=== PATIENT | female | born 1985 | race Caucasian/White ===

== ENCOUNTER → 2016-10-12 | Outpatient (REF) | payer OTHER | LOC: M SFHCPLAZ 11:46 | PROVIDERS: ATTEND Internal Medicine | DX: Z00.00 Encounter for general adult medical examination without abnormal findings (principal); E28.2 Polycystic ovarian syndrome ==

== ENCOUNTER → 2016-10-12 | Outpatient (CLI) | payer OTHER ==
[2016-10-12 16:47] LABS: MEAN CORPUSCULAR HEMOGLOBIN 29.1 pg (27.0-33.0); MEAN CORPUSCULAR HGB CONC 32.8 g/dl (32.0-36.5); MEAN CORPUSCULAR VOLUME 88.9 fl (80.0-96.0); RED CELL DISTRIBUTION WIDTH 12.7 % (11.5-14.5); WHITE BLOOD COUNT 8.7 K/mm3 (4.0-10.0)
[2016-10-12 17:08] LABS: ALKALINE PHOSPHATASE 72 U/L (45-117); ALT/SGPT 13 U/L (12-78); ANION GAP 10 MEQ/L (8-16); AST/SGOT 23 U/L (15-37); BILIRUBIN,TOTAL 0.4 MG/DL (0.2-1.0); BLOOD UREA NITROGEN 10 MG/DL (7-18); CALCIUM LEVEL 9.5 MG/DL (8.5-10.1); CARBON DIOXIDE LEVEL 27 MEQ/L (21-32); CHLORIDE LEVEL 103 MEQ/L (98-107); GLOMERULAR FILTRATION RATE > 60.0 (>60); GLUCOSE, FASTING 83 MG/DL (70-105); POTASSIUM SERUM 4.1 MEQ/L (3.5-5.1); SODIUM LEVEL 140 MEQ/L (136-145); TRIGLYCERIDES LEVEL 133 MG/DL (<150)
[2016-10-12 17:09] LABS: ALBUMIN 3.8 GM/DL (3.2-5.2); ALBUMIN/GLOBULIN RATIO 1.09 (1.00-1.93); CHOLESTEROL LEVEL 222 MG/DL (<200); TOTAL PROTEIN 7.3 GM/DL (6.4-8.2)
== END ==
LOC: M WUC 14:17
PROVIDERS: ATTEND Internal Medicine
DX: Z00.00 Encounter for general adult medical examination without abnormal findings (principal); E28.2 Polycystic ovarian syndrome

== ENCOUNTER → 2017-07-06 | Outpatient (REF) | payer OTHER ==
[2017-07-06 18:37] LABS: APPEARANCE, URINE CLEAR (CLEAR); BACTERIA, URINE AUTO NEGATIVE (NEGATIVE); BILIRUBIN, URINE AUTO NEGATIVE (NEGATIVE); BLOOD, URINE BLOOD NEGATIVE (NEGATIVE); COLOR, URINE YELLOW (YELLOW); GLUCOSE, URINE (UA) AUTO NEGATIVE (NEGATIVE); KETONE, URINE AUTO NEGATIVE (NEGATIVE); LEUKOCYTE ESTERASE, URINE AUTO NEGATIVE (NEGATIVE); MUCUS, URINE SMALL (NEGATIVE); NITRITE, URINE AUTO NEGATIVE (NEGATIVE); PROTEIN, URINE AUTO NEGATIVE (NEGATIVE); RBC, URINE AUTO 2 /HPF (0-3); SPECIFIC GRAVITY URINE AUTO 1.027 (1.002-1.035); SQUAMOUS EPITHELIAL CELL UR AU 2 /HPF (0-6); UROBILINOGEN, URINE AUTO 0.2 mg/dL (0.0-2.0); WBC, URINE AUTO 2 /HPF (0-3)
== END ==
LOC: M LAB REF 17:19
DX: N39.0 Urinary tract infection, site not specified (principal)

== ENCOUNTER → 2017-07-06 | Outpatient (CLI) | payer OTHER ==
[2017-07-06 18:07] LABS: HEMATOCRIT 41.2 % (36.0-47.0); HEMOGLOBIN 13.2 g/dl (12.0-16.0); MEAN CORPUSCULAR HEMOGLOBIN 28.2 pg (27.0-33.0); PLATELET COUNT, AUTOMATED 354 10^3/uL (150-450); RED BLOOD COUNT 4.68 10^6/uL (4.00-5.40); RED CELL DISTRIBUTION WIDTH 13.1 % (11.5-14.5)
[2017-07-06 18:44] LABS: ERYTHROCYTE SEDIMENTATION RATE 18 mm/hr (0-20)
[2017-07-06 19:09] LABS: FREE T4 1.13 NG/DL (0.76-1.46)
[2017-07-06 19:11] LABS: ESTIMATED AVERAGE GLUCOSE 97 MG/DL (60-110)
== END ==
LOC: M WUC 12:23
DX: N92.0 Excessive and frequent menstruation with regular cycle (principal); N94.3 Premenstrual tension syndrome
CPT/HCPCS: 84146

== ENCOUNTER → 2017-07-06 | Outpatient (CLI) | payer OTHER ==
[2017-07-06 18:08] LABS: HEMATOCRIT 40.6 % (36.0-47.0); MEAN CORPUSCULAR HEMOGLOBIN 28.4 pg (27.0-33.0); MEAN CORPUSCULAR VOLUME 88.6 fl (80.0-96.0); PLATELET COUNT, AUTOMATED 330 10^3/uL (150-450); RED BLOOD COUNT 4.58 10^6/uL (4.00-5.40); WHITE BLOOD COUNT 9.2 10^3/uL (4.0-10.0)
[2017-07-06 19:07] LABS: ALBUMIN 3.9 GM/DL (3.2-5.2); ALBUMIN/GLOBULIN RATIO 1.11 (1.00-1.93); ALKALINE PHOSPHATASE 58 U/L (45-117); ALT/SGPT 8 U/L (12-78); ANION GAP 7 MEQ/L (8-16); AST/SGOT 11 U/L (7-37); BILIRUBIN,DIRECT < 0.1 MG/DL (0.0-0.2); BILIRUBIN,TOTAL 0.2 MG/DL (0.2-1.0); BLOOD UREA NITROGEN 13 MG/DL (7-18); CALCIUM LEVEL 8.9 MG/DL (8.5-10.1); CARBON DIOXIDE LEVEL 29 MEQ/L (21-32); CHLORIDE LEVEL 102 MEQ/L (98-107); CREATININE FOR GFR 0.71 MG/DL (0.55-1.02); GLOMERULAR FILTRATION RATE > 60.0 (>60); GLUCOSE, FASTING 83 MG/DL (70-105); PHOSPHORUS LEVEL 3.1 MG/DL (2.5-4.9); POTASSIUM SERUM 4.5 MEQ/L (3.5-5.1); SODIUM LEVEL 138 MEQ/L (136-145); TOTAL PROTEIN 7.4 GM/DL (6.4-8.2)
== END ==
LOC: M WUC 12:18
DX: B35.1 Tinea unguium (principal); Z79.899 Other long term (current) drug therapy
CPT/HCPCS: 80076

== ENCOUNTER → 2017-08-15 | Outpatient (REF) | payer OTHER ==
[2017-08-17 14:12] LABS: HPV HYBRID CAPTURE II Negative (Negative)
== END ==
LOC: M LAB REF 18:02
DX: Z12.4 Encounter for screening for malignant neoplasm of cervix (principal)

== ENCOUNTER → 2017-09-20 | Outpatient (REF) | payer OTHER ==
[2017-09-20 11:59] LABS: HEMOGLOBIN 13.1 g/dl (12.0-16.0); MEAN CORPUSCULAR HEMOGLOBIN 28.9 pg (27.0-33.0); MEAN CORPUSCULAR HGB CONC 32.8 g/dl (32.0-36.5); MEAN CORPUSCULAR VOLUME 88.3 fl (80.0-96.0); PLATELET COUNT, AUTOMATED 272 10^3/uL (150-450); RED BLOOD COUNT 4.53 10^6/uL (4.00-5.40); WHITE BLOOD COUNT 7.4 10^3/uL (4.0-10.0)
[2017-09-20 12:58] LABS: ALBUMIN 3.6 GM/DL (3.2-5.2); ALKALINE PHOSPHATASE 63 U/L (45-117); ALT/SGPT 13 U/L (12-78); ANION GAP 5 MEQ/L (8-16); AST/SGOT 17 U/L (7-37); BILIRUBIN,TOTAL 0.4 MG/DL (0.2-1.0); BLOOD UREA NITROGEN 13 MG/DL (7-18); CARBON DIOXIDE LEVEL 29 MEQ/L (21-32); CHLORIDE LEVEL 107 MEQ/L (98-107); CHOLESTEROL LEVEL 199 MG/DL (<200); CHOLESTEROL RISK RATIO 2.689 (<5); CREATININE FOR GFR 0.73 MG/DL (0.55-1.30); GLOMERULAR FILTRATION RATE > 60.0 (>60); GLUCOSE, FASTING 81 MG/DL (70-100); HDL CHOLESTEROL 74 MG/DL (>40); LDL CHOLESTEROL 100.2 MG/DL (<100); NON-HDL-C 125 MG/DL; POTASSIUM SERUM 4.7 MEQ/L (3.5-5.1); SODIUM LEVEL 141 MEQ/L (136-145); TOTAL PROTEIN 7.2 GM/DL (6.4-8.2); TRIGLYCERIDES LEVEL 124 MG/DL (<150)
== END ==
LOC: M SFHCPLAZ 10:12
DX: Z00.00 Encounter for general adult medical examination without abnormal findings (principal); R53.81 Other malaise; E28.2 Polycystic ovarian syndrome

== ENCOUNTER → 2018-07-17 | Outpatient (REF) | payer OTHER | LOC: M SFHCLERA 21:41 | PROVIDERS: ATTEND Nurse Practitioner Family | DX: J06.9 Acute upper respiratory infection, unspecified (principal) ==

== ENCOUNTER → 2018-08-24 | Outpatient (REF) | payer OTHER ==
[2018-08-29 00:06] LABS: HPV HYBRID CAPTURE II Negative (Negative)
== END ==
LOC: M LAB REF 17:39
PROVIDERS: ATTEND Advanced Practice Midwife
DX: Z12.4 Encounter for screening for malignant neoplasm of cervix (principal); Z11.51 Encounter for screening for human papillomavirus (HPV)
CPT/HCPCS: 87624; G0123

== ENCOUNTER → 2018-08-29 | Outpatient (REF) | payer OTHER ==
[2018-08-29 18:42] LABS: FREE T4 1.24 NG/DL (0.76-1.46); THYROID STIMULATING HORMONE 1.88 uIU/ML (0.358-3.740)
[2018-08-29 18:45] LABS: PROGESTERONE 0.29 NG/ML
[2018-08-29 18:49] LABS: HEMATOCRIT 42.3 % (36.0-47.0); HEMOGLOBIN 13.5 g/dl (12.0-15.5); MEAN CORPUSCULAR HEMOGLOBIN 28.4 pg (27.0-33.0); MEAN CORPUSCULAR HGB CONC 31.9 g/dl (32.0-36.5); MEAN CORPUSCULAR VOLUME 88.9 fl (80.0-96.0); PLATELET COUNT, AUTOMATED 342 10^3/uL (150-450); RED BLOOD COUNT 4.76 10^6/uL (4.00-5.40); WHITE BLOOD COUNT 8.9 10^3/uL (4.0-10.0)
[2018-08-30 06:25] LABS: PROLACTIN 6.5 NG/ML
[2018-08-31 14:21] LABS: INSULIN LEVEL 12.5 uIU/mL (2.6-24.9)
[2018-09-01 00:07] LABS: DEHYDROEPIANDROSTERONE SULFATE 163.3 ug/dL (84.8-378.0); TESTOSTERONE FREE (DIRECT) 1.1 pg/mL (0.0-4.2)
== END ==
LOC: M LABDRAWP 13:18
PROVIDERS: ATTEND Advanced Practice Midwife
DX: N92.6 Irregular menstruation, unspecified (principal)

== ENCOUNTER → 2018-08-29 | Outpatient (REF) | payer OTHER ==
[2018-08-29 18:49] LABS: ALBUMIN 3.6 GM/DL (3.2-5.2); ALT/SGPT 15 U/L (12-78); BILIRUBIN,TOTAL 0.4 MG/DL (0.2-1.0); BLOOD UREA NITROGEN 9 MG/DL (7-18); CALCIUM LEVEL 8.5 MG/DL (8.5-10.1); CARBON DIOXIDE LEVEL 26 MEQ/L (21-32); CHLORIDE LEVEL 104 MEQ/L (98-107); CHOLESTEROL LEVEL 224 MG/DL (<200); CHOLESTEROL RISK RATIO 2.382 (<5); GLOMERULAR FILTRATION RATE > 60.0 (>60); GLUCOSE, FASTING 68 MG/DL (70-100); HDL CHOLESTEROL 94 MG/DL (>40); HEMATOCRIT 41.9 % (36.0-47.0); HEMOGLOBIN 13.3 g/dl (12.0-15.5); LDL CHOLESTEROL 106 MG/DL (<100); MEAN CORPUSCULAR HEMOGLOBIN 27.9 pg (27.0-33.0); MEAN CORPUSCULAR HGB CONC 31.7 g/dl (32.0-36.5); NON-HDL-C 130 MG/DL; PLATELET COUNT, AUTOMATED 345 10^3/uL (150-450); POTASSIUM SERUM 4.2 MEQ/L (3.5-5.1); RED BLOOD COUNT 4.76 10^6/uL (4.00-5.40); SODIUM LEVEL 139 MEQ/L (136-145); TOTAL PROTEIN 7.4 GM/DL (6.4-8.2); TRIGLYCERIDES LEVEL 118 MG/DL (<150)
[2018-08-29 18:58] LABS: HEMOGLOBIN A1c 5.3 %
== END ==
LOC: M SFHCPLAZ 13:14
PROVIDERS: ATTEND Internal Medicine
DX: Z00.00 Encounter for general adult medical examination without abnormal findings (principal); E66.01 Morbid (severe) obesity due to excess calories; E78.00 Pure hypercholesterolemia, unspecified; E28.2 Polycystic ovarian syndrome; R53.81 Other malaise

== ENCOUNTER → 2019-04-22 | Outpatient (CLI) | payer OTHER ==
--- NOTE | 2019-04-22 14:22 | REP ---
Chest x-ray: Two views. History: Cough x2 weeks. . Comparison study: No comparison study . Findings: The lungs are well inflated and free of infiltrate. The pleural angles are sharp. The heart size is normal. Pulmonary vasculature is not increased. No significant bony abnormality is seen. Impression: Negative chest x-ray. Electronically Signed by Ananda Calhoun MD 04/22/2019 02:14 P
== END ==
LOC: M LRY 13:55
PROVIDERS: ATTEND Physician Assistant
DX: R05 Cough (principal)

== ENCOUNTER → 2019-12-10 | Outpatient (REF) | payer OTHER ==
[2019-12-10 17:32] LABS: HEMATOCRIT 40.8 % (36.0-47.0); HEMOGLOBIN 13.1 g/dl (12.0-15.5); MEAN CORPUSCULAR HEMOGLOBIN 28.7 pg (27.0-33.0); MEAN CORPUSCULAR HGB CONC 32.1 g/dl (32.0-36.5); MEAN CORPUSCULAR VOLUME 89.5 fl (80.0-96.0); PLATELET COUNT, AUTOMATED 346 10^3/uL (150-450); RED BLOOD COUNT 4.56 10^6/uL (4.00-5.40); WHITE BLOOD COUNT 8.5 10^3/uL (4.0-10.0)
[2019-12-10 17:38] LABS: ALBUMIN 3.6 GM/DL (3.2-5.2); ALT/SGPT 13 U/L (12-78); BILIRUBIN,TOTAL 0.2 MG/DL (0.2-1.0); BLOOD UREA NITROGEN 10 MG/DL (7-18); CALCIUM LEVEL 9.3 MG/DL (8.5-10.1); CARBON DIOXIDE LEVEL 27 MEQ/L (21-32); CHLORIDE LEVEL 105 MEQ/L (98-107); CHOLESTEROL LEVEL 213 MG/DL (<200); CHOLESTEROL RISK RATIO 2.597 (<5); CREATININE FOR GFR 0.68 MG/DL (0.55-1.30); GLOMERULAR FILTRATION RATE > 60.0 (>60); GLUCOSE, FASTING 82 MG/DL (70-100); HDL CHOLESTEROL 82 MG/DL (>40); LDL CHOLESTEROL 109 MG/DL (<100); NON-HDL-C 131 MG/DL; POTASSIUM SERUM 4.3 MEQ/L (3.5-5.1); SODIUM LEVEL 137 MEQ/L (136-145); TOTAL PROTEIN 7.3 GM/DL (6.4-8.2); TRIGLYCERIDES LEVEL 109 MG/DL (<150)
== END ==
LOC: M PLALAB 14:15
PROVIDERS: ATTEND Internal Medicine
DX: Z00.00 Encounter for general adult medical examination without abnormal findings (principal); R53.81 Other malaise; E78.00 Pure hypercholesterolemia, unspecified

== ENCOUNTER → 2019-12-23 | Outpatient (CLI) | payer OTHER ==
[~2019-12-23] MED LIST: E-Z-GAS II EFFERVESCENT PACKET (SODIUM BICARB./CITRIC ACID/SIMETHICONE) As Ordered ONE; E-Z-HD 98% w/w 340GM SUSP BTL As Ordered ONE; E-Z-PAQUE 96% w/w SUSP 176GM BTL As Ordered ONE
--- NOTE | 2019-12-23 14:57 | REP ---
Examination Requested: Esophagram Barium Swallow Reason For Exam/Comment: Esophageal dysphasia Esophagram: The procedure was performed ALLISON Swain, under the direct supervision of Dr. Calhoun. The images were reviewed with Dr. Calhoun. A single PA chest x-ray is submitted as a human services worker film. The superior mediastinal structures are midline. The heart size is within normal limits. The lungs are clear. Liquid barium and gas producing granules were given in the erect position as well as liquid barium in the prone oblique position, in order to perform a double contrast esophagram examination. Oral and pharyngeal stages of the examination were unremarkable. Esophageal transport is efficient and there is no esophagitis, stricture, or mucosal ring noted. There is a hiatal hernia noted. Gastroesophageal reflux was not visualized during the course of this exam. Impression: 1. Hiatal hernia. 0.1 minutes of fluoroscopy time was utilized for this procedure. Some fluoroscopic images are performed with last image hold technology. These images require no additional radiation. Reviewed by ALLISON Mclean 12/23/2019 02:23 P Electronically Signed by Ananda Calhoun MD 12/23/2019 02:49 P
== END ==
LOC: M RAD 10:11
PROVIDERS: ATTEND Internal Medicine
DX: R13.10 Dysphagia, unspecified (principal); K44.9 Diaphragmatic hernia without obstruction or gangrene

== ENCOUNTER → 2020-01-22 | Emergency (ER) | payer OTHER | END | disposition home or self-care (01) | LOC: M ED 21:55 | DX: S93.401A Sprain of unspecified ligament of right ankle, initial encounter (principal); S80.811A Abrasion, right lower leg, initial encounter; X50.1XXA Overexertion from prolonged static or awkward postures, initial encounter; Y92.096 Garden or yard of other non-institutional residence as the place of occurrence of the external cause; J45.909 Unspecified asthma, uncomplicated; M54.9 Dorsalgia, unspecified; Z79.899 Other long term (current) drug therapy ==

== ENCOUNTER → 2020-05-15 | Outpatient (CLI) | payer OTHER ==
[2020-05-15 17:21] LABS: BASO # 0.1 10^3/uL (0.0-0.2); EOS # 0.2 10^3/uL (0.0-0.5); EOS % 2.6 % (0.0-3.0); HEMATOCRIT 43.6 % (36.0-47.0); HEMOGLOBIN 13.7 g/dl (12.0-15.5); LYMPH # 2.6 10^3/uL (1.5-5.0); LYMPH % 37.7 % (24.0-44.0); MEAN CORPUSCULAR HEMOGLOBIN 27.7 pg (27.0-33.0); MEAN CORPUSCULAR HGB CONC 31.4 g/dl (32.0-36.5); MEAN CORPUSCULAR VOLUME 88.1 fl (80.0-96.0); MONO # 0.6 10^3/uL (0.0-0.8); MONO % 8.3 % (0.0-5.0); NEUTROPHILS # 3.5 10^3/uL (1.5-8.5); PLATELET COUNT, AUTOMATED 242 10^3/uL (150-450); RED BLOOD COUNT 4.95 10^6/uL (4.00-5.40)
[2020-05-15 17:32] LABS: HEMATOCRIT 43.6 % (36.0-47.0)
[2020-05-15 17:54] LABS: ALBUMIN 3.7 GM/DL (3.2-5.2); ALT/SGPT 13 U/L (12-78); BILIRUBIN,TOTAL 0.4 MG/DL (0.2-1.0); BLOOD UREA NITROGEN 4 MG/DL (7-18); CALCIUM LEVEL 9.4 MG/DL (8.5-10.1); CARBON DIOXIDE LEVEL 22 MEQ/L (21-32); CHLORIDE LEVEL 103 MEQ/L (98-107); CREATININE FOR GFR 0.69 MG/DL (0.55-1.30); FERRITIN 137 NG/ML (8-252); GLOMERULAR FILTRATION RATE > 60.0 (>60); GLUCOSE, FASTING 59 MG/DL (70-100); IRON (FE) 51 UG/DL (50-170); PHOSPHORUS LEVEL 3.4 MG/DL (2.5-4.9); POTASSIUM SERUM 3.9 MEQ/L (3.5-5.1); SODIUM LEVEL 137 MEQ/L (136-145); TOTAL PROTEIN 7.4 GM/DL (6.4-8.2)
[2020-05-15 18:04] LABS: TOTAL 25(OH) VITAMIN D 26.6 NG/ML (30.0-100.0)
[2020-05-15 18:09] LABS: VITAMIN B12 LEVEL > 2000 PG/ML (247-911)
== END ==
LOC: M PLALAB 14:41
PROVIDERS: ATTEND Surgery
DX: K91.2 Postsurgical malabsorption, not elsewhere classified (principal); E55.9 Vitamin D deficiency, unspecified; Z98.84 Bariatric surgery status

== ENCOUNTER → 2020-10-18 | Outpatient (CLI) | payer OTHER ==
[2020-10-18 13:55] LABS: HEMATOCRIT 40.3 % (36.0-47.0)
[2020-10-18 13:56] LABS: BASO # 0.1 10^3/uL (0.0-0.2); BASO % 1.3 % (0.0-1.0); EOS # 0.2 10^3/uL (0.0-0.5); EOS % 2.5 % (0.0-3.0); HEMATOCRIT 40.3 % (36.0-47.0); HEMOGLOBIN 12.5 g/dl (12.0-15.5); LYMPH # 2.3 10^3/uL (1.5-5.0); LYMPH % 36.8 % (24.0-44.0); MEAN CORPUSCULAR HEMOGLOBIN 29.9 pg (27.0-33.0); MEAN CORPUSCULAR VOLUME 96.4 fl (80.0-96.0); MONO # 0.5 10^3/uL (0.0-0.8); MONO % 8.5 % (2.0-8.0); NEUTROPHILS # 3.2 10^3/uL (1.5-8.5); NEUTROPHILS % 50.6 % (36.0-66.0); PLATELET COUNT, AUTOMATED 243 10^3/uL (150-450); RED BLOOD COUNT 4.18 10^6/uL (4.00-5.40); WHITE BLOOD COUNT 6.3 10^3/uL (4.0-10.0)
[2020-10-18 14:13] LABS: HEMOGLOBIN A1c 4.3 %
[2020-10-18 14:21] LABS: ALBUMIN 3.1 GM/DL (3.2-5.2); ALT/SGPT 10 U/L (12-78); BILIRUBIN,TOTAL 0.3 MG/DL (0.2-1.0); BLOOD UREA NITROGEN 7 MG/DL (7-18); CARBON DIOXIDE LEVEL 29 MEQ/L (21-32); CHLORIDE LEVEL 108 MEQ/L (98-107); CREATININE FOR GFR 0.59 MG/DL (0.55-1.30); FERRITIN 147 NG/ML (8-252); GLOMERULAR FILTRATION RATE > 60.0 (>60); GLUCOSE, FASTING 83 MG/DL (70-100); IRON (FE) 66 UG/DL (50-170); MAGNESIUM LEVEL 2.2 MG/DL (1.8-2.4); PERCENT SATURATION 32.7 % (13.2-45.0); PHOSPHORUS LEVEL 3.7 MG/DL (2.5-4.9); SODIUM LEVEL 142 MEQ/L (136-145); TOTAL IRON BINDING CAPACITY 202 UG/DL (250-450); TOTAL PROTEIN 6.2 GM/DL (6.4-8.2)
[2020-10-19 07:03] LABS: TOTAL 25(OH) VITAMIN D 35.9 NG/ML (30.0-100.0); VITAMIN B12 LEVEL 871 PG/ML (247-911)
== END ==
LOC: M LAB 13:06
PROVIDERS: ATTEND Physician Assistant Surgical
DX: K91.2 Postsurgical malabsorption, not elsewhere classified (principal); Z98.84 Bariatric surgery status; E55.9 Vitamin D deficiency, unspecified; Z86.39 Personal history of other endocrine, nutritional and metabolic disease

== ENCOUNTER → 2020-11-25 | Outpatient (REF) | payer OTHER | LOC: M SFHCPLAZ 17:22 | PROVIDERS: ATTEND Nurse Practitioner Adult Health | DX: R30.0 Dysuria (principal) ==

== ENCOUNTER → 2020-11-25 | Outpatient (REF) | payer OTHER ==
[2020-11-25 15:24] LABS: HEMATOCRIT 41.1 % (36.0-47.0); MEAN CORPUSCULAR HEMOGLOBIN 30.4 pg (27.0-33.0); MEAN CORPUSCULAR HGB CONC 31.6 g/dl (32.0-36.5); MEAN CORPUSCULAR VOLUME 96.3 fl (80.0-96.0); PLATELET COUNT, AUTOMATED 237 10^3/uL (150-450); RED BLOOD COUNT 4.27 10^6/uL (4.00-5.40); WHITE BLOOD COUNT 6.4 10^3/uL (4.0-10.0)
[2020-11-25 15:55] LABS: CHOLESTEROL RISK RATIO 2.118 (<5)
== END ==
LOC: M SFHCPLAZ 12:57
PROVIDERS: ATTEND Nurse Practitioner Adult Health
DX: J45.990 Exercise induced bronchospasm (principal); E78.00 Pure hypercholesterolemia, unspecified

== ENCOUNTER → 2021-04-20 | Outpatient (CLI) | payer OTHER ==
[2021-04-20 17:50] LABS: BASO # 0.1 10^3/uL (0.0-0.2); BASO % 0.9 % (0.0-1.0); EOS # 0.1 10^3/uL (0.0-0.5); EOS % 1.5 % (0.0-3.0); HEMATOCRIT 38.2 % (36.0-47.0); HEMOGLOBIN 12.3 g/dl (12.0-15.5); LYMPH # 2.9 10^3/uL (1.5-5.0); MEAN CORPUSCULAR HEMOGLOBIN 29.5 pg (27.0-33.0); MEAN CORPUSCULAR HGB CONC 32.2 g/dl (32.0-36.5); MEAN CORPUSCULAR VOLUME 91.6 fl (80.0-96.0); MONO # 0.5 10^3/uL (0.0-0.8); MONO % 5.9 % (2.0-8.0); NEUTROPHILS # 4.3 10^3/uL (1.5-8.5); NEUTROPHILS % 54.4 % (36.0-66.0); PLATELET COUNT, AUTOMATED 264 10^3/uL (150-450); RED BLOOD COUNT 4.17 10^6/uL (4.00-5.40); WHITE BLOOD COUNT 7.9 10^3/uL (4.0-10.0)
[2021-04-20 18:21] LABS: HEMATOCRIT 38.2 % (36.0-47.0)
[2021-04-20 19:18] LABS: ALBUMIN 3.6 GM/DL (3.2-5.2); ALT/SGPT 30 U/L (12-78); BILIRUBIN,TOTAL 0.3 MG/DL (0.2-1.0); BLOOD UREA NITROGEN 14 MG/DL (7-18); CALCIUM LEVEL 9.5 MG/DL (8.5-10.1); CARBON DIOXIDE LEVEL 30 MEQ/L (21-32); CHLORIDE LEVEL 107 MEQ/L (98-107); CREATININE FOR GFR 0.72 MG/DL (0.55-1.30); FERRITIN 78 NG/ML (8-252); GLOMERULAR FILTRATION RATE > 60.0 (>60); GLUCOSE, FASTING 91 MG/DL (70-100); IRON (FE) 32 UG/DL (50-170); MAGNESIUM LEVEL 2.2 MG/DL (1.8-2.4); PERCENT SATURATION 11.7 % (13.2-45.0); PHOSPHORUS LEVEL 4.2 MG/DL (2.5-4.9); POTASSIUM SERUM 4.5 MEQ/L (3.5-5.1); SODIUM LEVEL 140 MEQ/L (136-145); TOTAL 25(OH) VITAMIN D 36.6 NG/ML (30.0-100.0); TOTAL IRON BINDING CAPACITY 273 UG/DL (250-450); TOTAL PROTEIN 6.8 GM/DL (6.4-8.2); VITAMIN B12 LEVEL 1795 PG/ML (247-911)
[2021-04-20 19:42] LABS: HEMOGLOBIN A1c 5.2 %
== END ==
LOC: M PLALAB 15:56
PROVIDERS: ATTEND Physician Assistant
DX: K91.2 Postsurgical malabsorption, not elsewhere classified (principal); E55.9 Vitamin D deficiency, unspecified; Z86.39 Personal history of other endocrine, nutritional and metabolic disease; Z98.84 Bariatric surgery status

== ENCOUNTER → 2021-08-20 | Outpatient (CLI) | payer OTHER ==
[2021-08-20 17:19] LABS: HEMOGLOBIN 13.1 g/dl (12.0-15.5); MEAN CORPUSCULAR HEMOGLOBIN 28.9 pg (27.0-33.0); MEAN CORPUSCULAR VOLUME 90.5 fl (80.0-96.0); PLATELET COUNT, AUTOMATED 280 10^3/uL (150-450); RED BLOOD COUNT 4.53 10^6/uL (4.00-5.40); WHITE BLOOD COUNT 7.5 10^3/uL (4.0-10.0)
[2021-08-20 17:48] LABS: ALBUMIN 3.7 GM/DL (3.2-5.2); ALT/SGPT 32 U/L (12-78); BILIRUBIN,TOTAL 0.3 MG/DL (0.2-1.0); BLOOD UREA NITROGEN 9 MG/DL (7-18); CALCIUM LEVEL 9.2 MG/DL (8.5-10.1); CARBON DIOXIDE LEVEL 30 MEQ/L (21-32); CHLORIDE LEVEL 104 MEQ/L (98-107); GLOMERULAR FILTRATION RATE > 60.0 (>60); GLUCOSE, FASTING 84 MG/DL (70-100); POTASSIUM SERUM 4.5 MEQ/L (3.5-5.1); SODIUM LEVEL 138 MEQ/L (136-145)
== END ==
LOC: M PLALAB 15:51
PROVIDERS: ATTEND Internal Medicine
DX: Z98.84 Bariatric surgery status (principal)

== ENCOUNTER → 2021-11-30 | Outpatient (REF) | payer OTHER | LOC: M SFHCWAGY 09:56 | PROVIDERS: ATTEND Specialist | DX: Z12.4 Encounter for screening for malignant neoplasm of cervix (principal) | CPT/HCPCS: 87624; G0123 ==

== ENCOUNTER → 2022-04-12 | Outpatient (REF) | payer OTHER | LOC: M SFHCPLAZ 15:05 | PROVIDERS: ATTEND Physician Assistant | DX: R30.0 Dysuria (principal) ==

== ENCOUNTER → 2022-08-15 | Outpatient (CLI) | payer OTHER ==
[2022-08-15 16:12] LABS: FOLATE > 24.0 NG/ML (>5.4); TOTAL 25(OH) VITAMIN D 29.5 NG/ML (20.0-100.0); VITAMIN B12 LEVEL 909 PG/ML (211-911)
[2022-08-15 16:15] LABS: ALBUMIN 3.7 G/DL (3.2-5.2); ALKALINE PHOSPHATASE 70 U/L (46-116); ALT/SGPT 10 U/L (7.0-40); AST/SGOT 18 U/L (<34); BILIRUBIN,TOTAL 0.4 MG/DL (0.3-1.2); BLOOD UREA NITROGEN 12 MG/DL (9-23); CARBON DIOXIDE LEVEL 30 MMOL/L (20-31); CHLORIDE LEVEL 104 MMOL/L (98-107); CHOLESTEROL LEVEL 196 MG/DL (<200); CHOLESTEROL RISK RATIO 1.97 (<5); CREATININE FOR GFR 0.63 MG/DL (0.55-1.30); GLOMERULAR FILTRATION RATE > 60.0 (>60); GLUCOSE, FASTING 81 MG/DL (60-100); HDL CHOLESTEROL 99.3 MG/DL (>40); LDL CHOLESTEROL 83.1 MG/DL (<100); NON-HDL-C 97 MG/DL; POTASSIUM SERUM 4.8 MMOL/L (3.5-5.1); SODIUM LEVEL 139 MMOL/L (136-145); TOTAL PROTEIN 6.7 G/DL (5.7-8.2); TRIGLYCERIDES LEVEL 68 MG/DL (<150)
[2022-08-15 16:20] LABS: BASO # 0.1 10^3/uL (0.0-0.2); BASO % 1.4 % (0.0-1.0); EOS # 0.1 10^3/uL (0.0-0.5); EOS % 1.8 % (0.0-3.0); HEMOGLOBIN 12.1 g/dl (12.0-15.5); LYMPH # 2.7 10^3/uL (1.5-5.0); LYMPH % 42.6 % (24.0-44.0); MEAN CORPUSCULAR HEMOGLOBIN 29.1 pg (27.0-33.0); MEAN CORPUSCULAR VOLUME 93.8 fl (80.0-96.0); MONO # 0.5 10^3/uL (0.0-0.8); MONO % 7.2 % (2.0-8.0); NEUTROPHILS # 2.9 10^3/uL (1.5-8.5); NEUTROPHILS % 46.5 % (36.0-66.0); PLATELET COUNT, AUTOMATED 283 10^3/uL (150-450); RED BLOOD COUNT 4.16 10^6/uL (4.00-5.40); WHITE BLOOD COUNT 6.3 10^3/uL (4.0-10.0)
== END ==
LOC: M PLALAB 12:07
PROVIDERS: ATTEND Nurse Practitioner Adult Health
DX: Z98.84 Bariatric surgery status (principal); E78.00 Pure hypercholesterolemia, unspecified

== ENCOUNTER → 2023-04-06 | Outpatient (CLI) | payer OTHER ==
[2023-04-06 15:45] LABS: HEMATOCRIT 39.7 % (36.0-47.0); HEMOGLOBIN 12.7 g/dl (12.0-15.5); MEAN CORPUSCULAR HEMOGLOBIN 29.5 pg (27.0-33.0); MEAN CORPUSCULAR VOLUME 92.3 fl (80.0-96.0); PLATELET COUNT, AUTOMATED 335 10^3/uL (150-450); WHITE BLOOD COUNT 6.6 10^3/uL (4.0-10.0)
[2023-04-06 16:11] LABS: HEMOGLOBIN A1c 5.1 % (4.0-6.0)
[2023-04-06 16:18] LABS: THYROID STIMULATING HORMONE 0.759 uIU/ML (0.55-4.78)
[2023-04-06 16:19] LABS: FERRITIN 8.2 NG/ML (7.3-270.7)
[2023-04-06 16:22] LABS: ALBUMIN 3.7 G/DL (3.2-5.2); ALKALINE PHOSPHATASE 81 U/L (46-116); ALT/SGPT 10 U/L (7.0-40); AST/SGOT 18 U/L (<34); BILIRUBIN,TOTAL 0.4 MG/DL (0.3-1.2); BLOOD UREA NITROGEN 8 MG/DL (9-23); CALCIUM LEVEL 9.3 MG/DL (8.5-10.1); CARBON DIOXIDE LEVEL 29 MMOL/L (20-31); CHLORIDE LEVEL 103 MMOL/L (98-107); CHOLESTEROL LEVEL 206 MG/DL (<200); CHOLESTEROL RISK RATIO 2.16 (<5); CREATININE FOR GFR 0.66 MG/DL (0.55-1.30); GLOMERULAR FILTRATION RATE > 60.0 (>60); GLUCOSE, FASTING 85 MG/DL (60-100); HDL CHOLESTEROL 95.1 MG/DL (>40); LDL CHOLESTEROL 94.7 MG/DL (<100); NON-HDL-C 110.9 MG/DL; POTASSIUM SERUM 4.6 MMOL/L (3.5-5.1); SODIUM LEVEL 139 MMOL/L (136-145); TRIGLYCERIDES LEVEL 81 MG/DL (<150); VITAMIN B12 LEVEL 1680 PG/ML (211-911)
== END ==
LOC: M PLALAB 13:30
PROVIDERS: ATTEND Nurse Practitioner Adult Health
DX: Z98.84 Bariatric surgery status (principal); E78.00 Pure hypercholesterolemia, unspecified; E28.2 Polycystic ovarian syndrome

== ENCOUNTER 2023-05-26 08:14 | Outpatient (CLI) | payer OTHER ==
[~2023-05-26] VITALS: Ht 165.1 cm; Wt 72.3 kg
[2023-05-26] MEDS ORDERED: IRON SUCROSE 475 MG in NS 250 ML IV ONE (08:30)
[2023-05-26] MEDS ORDERED: IRON SUCROSE 25 MG in NS 23.75 ML IV ONE (08:30)
[2023-05-26 08:35] VITALS: BP 104/67; O2SAT 100
[2023-05-26 11:00] VITALS: BP 109/68; O2SAT 100
[2023-05-26 12:00] VITALS: BP 109/58; O2SAT 100
[2023-05-26 14:00] VITALS: BP 95/53; O2SAT 100
[2023-05-26 15:00] VITALS: BP 103/57; O2SAT 97
== END 2023-05-26 15:00 ==
LOC: M INFU 08:14
PROVIDERS: ATTEND Nurse Practitioner Adult Health
DX: D50.9 Iron deficiency anemia, unspecified (principal)
CPT/HCPCS: 96365; 96366; J1756

== ENCOUNTER → 2023-09-19 | Outpatient (REF) | payer OTHER ==
[2023-09-19 19:23] LABS: RSV AMPLIFICATION NEGATIVE (NEGATIVE)
== END ==
LOC: M SFHCLERA 17:02
PROVIDERS: ATTEND Physician Assistant
DX: J22 Unspecified acute lower respiratory infection (principal)

== ENCOUNTER → 2024-04-23 | Outpatient (REF) | payer OTHER ==
[2024-04-25 15:48] LABS: HPV APTIMA Not Detected (Not Detected)
== END ==
LOC: M SFHCWAGY 18:04
PROVIDERS: ATTEND Nurse Practitioner Family
DX: Z12.4 Encounter for screening for malignant neoplasm of cervix (principal)
CPT/HCPCS: 87624; G0123

== ENCOUNTER → 2024-06-03 | Outpatient (REF) | payer OTHER | LOC: M SFHCPLAZ 17:17 | PROVIDERS: ATTEND Physician Assistant Medical | DX: J06.9 Acute upper respiratory infection, unspecified (principal) ==

== ENCOUNTER → 2025-02-21 | Outpatient (REF) | payer OTHER ==
[2025-02-21 18:12] LABS: CHOLESTEROL LEVEL 195.0 MG/DL (<200); CHOLESTEROL RISK RATIO 2.2 (<5); LDL CHOLESTEROL 97.6 MG/DL (<100); MAGNESIUM LEVEL 2.1 MG/DL (1.8-2.4); NON-HDL-C 106.6 MG/DL; TRIGLYCERIDES LEVEL 45.0 MG/DL (<150)
[2025-02-21 18:13] LABS: BASO # 0.1 10^3/uL (0.0-0.2); BASO % 1.3 % (0.0-1.0); EOS # 0.2 10^3/uL (0.0-0.5); EOS % 2.7 % (0.0-3.0); LYMPH # 2.3 10^3/uL (1.5-5.0); LYMPH % 38.6 % (24.0-44.0); MONO # 0.4 10^3/uL (0.0-0.8); MONO % 7.1 % (2.0-8.0); NEUTROPHILS # 3.0 10^3/uL (1.5-8.5); NEUTROPHILS % 50.1 % (36.0-66.0); PLATELET COUNT, AUTOMATED 301 10^3/uL (150-450)
[2025-02-21 18:54] LABS: ESTIMATED AVERAGE GLUCOSE 103.0 MG/DL (60-110)
[2025-02-21 19:04] LABS: PROLACTIN 8.9 NG/ML; TOTAL 25(OH) VITAMIN D 39.1 NG/ML (20.0-100.0)
[2025-02-21 19:05] LABS: VITAMIN B12 LEVEL 537.0 PG/ML (211-911)
[2025-02-23 06:18] LABS: DEHYDROEPIANDROSTERONE SULFATE 89 mcg/dL (19-237)
[2025-02-27 16:42] LABS: TESTOSTERONE FREE (DIRECT) 4.7 pg/mL (0.1-6.4); TESTOSTERONE TOTAL FOR T&D 54 ng/dL (2-45)
== END ==
LOC: M SFHCLERA 11:14
PROVIDERS: ATTEND Student in an Organized Health Care Education/Training Program
DX: Z00.00 Encounter for general adult medical examination without abnormal findings (principal); Z98.84 Bariatric surgery status; N93.9 Abnormal uterine and vaginal bleeding, unspecified

== ENCOUNTER → 2025-03-11 | Outpatient (CLI) | payer OTHER | LOC: M WHC 14:51 | PROVIDERS: ATTEND Student in an Organized Health Care Education/Training Program | DX: N93.9 Abnormal uterine and vaginal bleeding, unspecified (principal); Z97.5 Presence of (intrauterine) contraceptive device ==

== ENCOUNTER → 2025-04-16 | Outpatient (CLI) | payer OTHER | LOC: M LAB 09:08 | PROVIDERS: ATTEND Student in an Organized Health Care Education/Training Program | DX: N93.9 Abnormal uterine and vaginal bleeding, unspecified (principal) ==

== ENCOUNTER → 2025-04-29 | Outpatient (REF) | payer OTHER ==
[2025-05-01 09:53] LABS: HPV APTIMA Not Detected (Not Detected)
== END ==
LOC: M SFHCWAGY 17:13
PROVIDERS: ATTEND Advanced Practice Midwife
DX: Z12.4 Encounter for screening for malignant neoplasm of cervix (principal)
CPT/HCPCS: 87624; G0123